=== PATIENT | male | born 1975 | race Two or more races ===

== ENCOUNTER 2017-02-16 09:10 | Day surgery (SDC) | payer BC ==
[2017-02-16] VITALS (10 sets, daily range): BP systolic 123–136; BP diastolic 70–87
[~2017-02-16] VITALS: Ht 193 cm; Wt 88.5 kg
--- NOTE | 2017-02-16 03:48 | History and Physical Report ---
DATE OF ADMISSION: 02/16/2017 AGE: [age] years old, . ALLERGIES: Augmentin. CHIEF COMPLAINT: Testicular pain and testicular varicocele. HISTORY OF PRESENT ILLNESS: This is a 41-year-old white male, who is admitted to the hospital for cystoscopic evaluation and left varicocelectomy. The patient was found having difficulty having a child and had a workup and was found to have a small left varicocele. PAST MEDICAL HISTORY: He had problem with prostatitis. The patient is for the last eight years and the could not conceive. PAST SURGICAL HISTORY: Fractured left wrist, appendectomy, and tonsillectomy. On medical side, the patient has a history of prostatitis, herpes genitalis, and condyloma. PHYSICAL EXAMINATION: GENERAL: He is well developed, well nourished, in no acute distress. HEAD AND NECK: Negative. CHEST: Normal clear breathing sounds. HEART: Normal rhythm and sound. ABDOMEN: Negative. GENITOURINARY: External genitalia, circumcised phallus, descended normal testicle on the right side and left side moderate amount of varicocele. RECTAL: Tender. Boggy prostate. EXTREMITIES: Negative. IMPRESSION: 1. Left varicocele. 2. Prostatitis for cystoscopic evaluation and left varicocelectomy. patient had a sperm count which showed 98% abnormal sperm and only 2% normal. Donna Ojeda M.D. DR: MIKEL JOB#: [id number] CC:
[~2017-02-16 09:10] MED LIST: ALIGN4 M1 PO; CINNAMON500 MG PO; FISH OIL 1,2001 EAC3 PO; MULTIVITAMINS1 EAC2 ORAL; TURMERIC500 MG PO; VITAMIN E1000 UNI1 PO
[2017-02-16 10:32] LABS: BASOPHILS % (AUTO) 1.7 % (0.0-2.0); EOSINOPHILS % (AUTO) 1.7 % (0.0-3.0); LYMPHOCYTES % (AUTO) 32.9 % (20.0-45.0); MEAN CORPUSCULAR HEMOGLOBIN 30.2 PG (27.0-31.0); MEAN CORPUSCULAR HGB CONC 33.6 G/DL (32.0-36.0); MEAN CORPUSCULAR VOLUME 90 FL (80-99); MEAN PLATELET VOLUME 8.8 FL (6.5-10.1); MONOCYTES % (AUTO) 6.1 % (1.0-10.0); NEUTROPHILS % (AUTO) 57.6 % (45.0-75.0); PLATELET COUNT 204 K/UL (150-450); RED BLOOD COUNT 5.14 M/UL (4.70-6.10); RED CELL DISTRIBUTION WIDTH 11.2 % (11.6-14.8); WHITE BLOOD COUNT 6.2 K/UL (4.8-10.8)
[2017-02-16 10:42] LABS: ANION GAP 16 (5-15); CALCIUM 9.8 mg/dL (8.6-10.2); CARBON DIOXIDE 25 mEQ/L (20-30); CHLORIDE 101 mEQ/L (98-107); CREATININE 0.8 mg/dL (0.7-1.2); GLOMERULAR FILTRATION RATE > 60 mL/min (>60); HEMOLYSIS 8; POTASSIUM 4.3 mEQ/L (3.4-4.9); SODIUM 142 mEQ/L (135-145)
[2017-02-16] MEDS ORDERED: Bupivacaine 0.5% Inj 30 ml vial INJ ONE (11:17)
[2017-02-16] MEDS ORDERED: LR 1000ml 1,000 ML IVLG SCH (11:33)
--- NOTE | 2017-02-16 11:33 | Anethesia Preoperative Eval ---
Anesthesia Pre-op PMH/ROS General Date of Evaluation: February 16, 2017 Anesthesiologist: Jaun ASA Score: ASA 1 Mallampati Score Class I : Soft palate, uvula, fauces, pillars visible Class II: Soft palate, uvula, fauces visible Class III: Soft palate, base of uvula visible Class IV: Only hard plate visible Mallampati Classification: Class I Surgeon: Lynette Diagnosis: Varicocele Surgical Procedure: Cystoscopy, varicocelectomy Anesthesia History: none Family History: no anesthesia problems Allergies: Coded Allergies: No Known Allergies (Unverified , 02/15/17) Medications: see eMAR Past Medical History Cardiovascular: Denies: CAD, HTN, [place], arrhythmia, other, valve dz Pulmonary: Denies: COPD, JEROME, asthma, other Gastrointestinal/Genitourinary: Denies: CRI, ESRD, GERD, other Neurologic/Psychiatric: Denies: CVA, TIA, dementia, depression/anxiety, other Endocrine: Denies: DM, hypothyroidism, other, steroids HEENT: Denies: ALUTIIQ (L), ALUTIIQ (R), cataract (L), cataract (R), glaucoma, other Hematology/Immune: Denies: DVT, anemia, bleeding disorder, other Musculoskeletal/Integumentary: Denies: DDD, DJD, OA, RA, edema, other PSxH Narrative: Denies Anesthesia Pre-op Phys. Exam Physician Exam Last Vital Signs Date Time Temp Pulse Resp B/P Pulse Ox O2 Delivery O2 Flow Rate FiO2 02/16/17 10:08 98.1 54 20 125/70 100 Room Air Constitutional: NAD Cardiovascular: RRR Respiratory: CTA Airway Exam Mallampati Score: Class II MO: full ROM: full Teeth: intact Anesthesia Pre-op A/P Labs Hematology Test 02/16/17 10:05 White Blood Count 6.2 K/UL (4.8-10.8) Red Blood Count 5.14 M/UL (4.70-6.10) Hemoglobin 15.5 G/DL (14.2-18.0) Hematocrit 46.2 % (42.0-52.0) Mean Corpuscular Volume 90 FL (80-99) Mean Corpuscular Hemoglobin 30.2 PG (27.0-31.0) Mean Corpuscular Hemoglobin Concent 33.6 G/DL (32.0-36.0) Red Cell Distribution Width 11.2 % (11.6-14.8) L Platelet Count 204 K/UL (150-450) Mean Platelet Volume 8.8 FL (6.5-10.1) Neutrophils (%) (Auto) 57.6 % (45.0-75.0) Lymphocytes (%) (Auto) 32.9 % (20.0-45.0) Monocytes (%) (Auto) 6.1 % (1.0-10.0) Eosinophils (%) (Auto) 1.7 % (0.0-3.0) Basophils (%) (Auto) 1.7 % (0.0-2.0) Chemistry Test 02/16/17 10:05 Sodium Level 142 mEQ/L (135-145) Potassium Level 4.3 mEQ/L (3.4-4.9) Chloride Level 101 mEQ/L (98-107) Carbon Dioxide Level 25 mEQ/L (20-30) Anion Gap 16 (5-15) H Blood Urea Nitrogen 10 mg/dL (7-23) Creatinine 0.8 mg/dL (0.7-1.2) Estimat Glomerular Filtration Rate > 60 mL/min (>60) Glucose Level 99 mg/dL (74-106) Calcium Level 9.8 mg/dL (8.6-10.2) Studies Pre-op Studies: EKG - sr Risk Assessment & Plan Assessment: ASA I Plan: GA Status Change Before Surgery: No Pre-Antibiotics Drug: Ancef 2g Given Within 1 Hr of Incision: JULIO CÉSAR Handley M.D. February 16, 2017 11:33
[2017-02-16] MEDS ORDERED: Ketorolac 30mg Inj IV PRN (11:45)
[2017-02-16] MEDS ORDERED: DiphenhydrAMINE 50mg/ml Inj IVP PRN (11:45)
[2017-02-16] MEDS ORDERED: fentaNYL 100 mcg/2 mL IV PRN (11:45)
[2017-02-16] MEDS ORDERED: Hydromorphone 0.5mg/0.5ml inj IVP PRN (11:45)
--- NOTE | 2017-02-16 11:49 | Pre-Procedure Note/Attestation ---
Pre-Procedure Note/Attestation Complete Prior to Procedure Planned Procedure: left Procedure Narrative: Left Varicocelectomy ,Cystoscopy Indications for Procedure Pre-Operative Diagnosis: Left Varicocele , Protatitis Attestation I attest that I discussed the nature of the procedure; its benefits; risks and complications; and alternatives (and the risks and benefits of such alternatives ), prior to the procedure, with the patient (or the patient's legal business center representative). I attest that, if there was a reasonable possibility of needing a blood transfusion, the patient (or the patient's legal business center representative) was given the [facility] standardized written summary, pursuant to the [place] Blood Safety Act ([place] Health and Safety Code # 1645, as amended). I attest that I re-evaluated the patient just prior to the surgery and that there has been no change in the patient's H&P, except as documented below: THAI DORSEY February 16, 2017 11:49
[2017-02-16] MEDS ORDERED: Midazolam 2mg/2ml Inj ONE (12:00)
[2017-02-16] MEDS ORDERED: LR 1000ml ONE (12:00)
[2017-02-16] MEDS ORDERED: NS Irrig 1000ml ONE (12:00)
[2017-02-16] MEDS ORDERED: Lidocaine 1% MPF 10mg/ml 5ml ONE (12:00)
[2017-02-16] MEDS ORDERED: Ketorolac 30mg Inj ONE (12:00)
[2017-02-16] MEDS ORDERED: fentaNYL 250mcg/5ml ONE (12:00)
[2017-02-16] MEDS ORDERED: Propofol 10mg/ml 20ml IV ONE (12:00)
[2017-02-16] MEDS ORDERED: Sterile Water For Irrig 2000ml IRRIG ONE (12:39)
--- NOTE | 2017-02-16 13:35 | Immediate Post-Op Evaluation ---
Immediate Post-Op Evalulation Immediate Post-Op Evalulation Procedure: Cystoscopy, varicocelectomy Date of Evaluation: February 16, 2017 Time of Evaluation: 13:37 IV Fluids: 700 Blood Products: 0 Estimated Blood Loss: min Urinary Output: 0 Blood Pressure Systolic: 129 Blood Pressure Diastolic: 78 Pulse Rate: 86 Respiratory Rate: 16 O2 Sat by Pulse Oximetry: 100 Temperature (Fahrenheit): 97.1 Pain Score (1-10): 0 Nausea: No Vomiting: No Complications 0 Patient Status: awake, reacts, patent, none Hydration Status: adequate Drug: Ancef 2g Given Within 1 Hr of Incision: Yes Time Given: 12:05 JULIO CÉSAR PACK M.D. February 16, 2017 13:35
--- NOTE | 2017-02-16 13:54 | Brief Operative Note ---
Immediate Post Operative Note Operative Note Pre-op Diagnosis: Left Varicocele , Protatitis Procedure: Cystoscopy, Left Varicocelectomy Post-op Diagnosis: Same Surgeon: Eliseo Ojeda MD Anesthesia: general Specimen: yes Complications: none Condition: stable Estimated Blood Loss: minimal Drains: none Implant(s) used?: No THAI OJEDA February 16, 2017 13:54
--- NOTE | 2017-02-16 17:32 | 48 Hour Post Anesthesia Eval ---
Post Anesthesia Evaluation Procedure: Cystoscopy, varicocelectomy Date of Evaluation: February 16, 2017 Time of Evaluation: 15:15 Blood Pressure Systolic: 125 0: 75 Pulse Rate: 68 Respiratory Rate: 20 Temperature (Fahrenheit): 97.8 O2 Sat by Pulse Oximetry: 100 Airway: patent Nausea: No Vomiting: No Pain Intensity: 1 Hydration Status: adequate Cardiopulmonary Status: at baseline Mental Status/LOC: patient returned to baseline Post-Anesthesia Complications: 0 Follow-up care needed: ready to discharge JULIO CÉSAR PACK M.D. February 16, 2017 17:32
--- NOTE | 2017-02-17 04:48 | Operative Note - Dictated ---
DATE OF OPERATION: 02/16/2017 SURGEON: Donna Ojeda M.D. ANESTHESIA: General. PROCEDURE PERFORMED: 1. Cystoscopy, urethral dilation. 2. Left varicocelectomy. PREOPERATIVE DIAGNOSES: Left varicocele and prostatitis. POSTOPERATIVE DIAGNOSES: Left varicocele and prostatitis. JUSTIFICATION: This is a 42-year-old white male with left varicocele, abnormal sperm count, and history of prostatitis. DESCRIPTION OF PROCEDURE: The patient was placed in a dorsal lithotomy position. He was prepped and draped in the usual fashion. The cystoscopal evaluation was carried out with #20 panendoscope, 30-degree lens. He was found to have a slightly congested prostate and the bladder was entered and was found to be 2+ trabeculated, ureteral orifices were normal position with normal configuration. No abnormal finding was detected. At this time, the scope was withdrawn and other structures appeared to be normal. At this time, the cystoscopic evaluation was terminated. The patient was repositioned in the supine position and a McBurney left inguinal incision was made after cutting through the skin and subcutaneous tissue. An oblique muscle was cut and then the fascia was opened and then the cord was identified. At this time, the vas was isolated from the rest of the cord with several significant veins that was transected. Then, about 10 mL of Marcaine 0.5% plain was injected into the stump of the cord close to vas deferens and then the muscle was closed with 3-0 Vicryl and the fascia with running 2-0 Vicryl with some interrupted subcutaneous tissue with 3-0 plain and the skin with subcuticular 4-0 Prolene. Another 10 mL of Marcaine 0.5% plain was injected subcutaneously inside the internal oblique fascia. After placing Steri-Strips and 3M dressing, the procedure was terminated. The patient tolerated the procedure well and remained stable throughout the procedure after receiving 1 g of Ancef and left the operating room in stable and satisfactory condition. Donna Ojeda M.D. DR: Dion JOB#: [id number] CC:
--- NOTE | 2017-02-20 08:33 | Cardiology Report ---
APPROVED REPORT EKG Measurement Heart [id number] Normal sinus rhythm with sinus arrhythmia Cannot rule out Anterior infarct, age undetermined Abnormal ECG
== END 2017-02-16 15:30 | disposition home or self-care (01) ==
LOC: SUR 09:10
DX: I86.1 Scrotal varices (principal); N41.9 Inflammatory disease of prostate, unspecified; R86.8 Other abnormal findings in specimens from male genital organs; A60.00 Herpesviral infection of urogenital system, unspecified; A63.0 Anogenital (venereal) warts; Z88.0 Allergy status to penicillin
CPT/HCPCS: 36415; 52000; 55530; 80048; 85025; 93005; J0690; J1885; J2250; J2405; J2704; J3010; J3490; J7120; 94003; 94150